=== PATIENT | female | born 1990 | race Caucasian/White ===

== ENCOUNTER 2017-09-17 11:59 | Emergency (ER) | payer OTHER ==
[2017-09-17] MEDS ORDERED: Ketorolac Tromethamine 60 MG/2 ML VIAL ONE (12:29)
[2017-09-17 12:42] LABS: Bilirubin Negative (Negative); Blood, Urine Moderate (Negative); Glucose, Urine (Dipstick) Negative (Negative); Ketone, Urine Negative (Negative); Nitrite Negative (Negative); Protein, Urine (Dipstick) Negative (Neg-Trace); Urobilinogen 0.2 mg/dL (0.2-1.0)
[2017-09-17 12:52] LABS: Bacteria/HPF None Seen HPF (None Seen); RBC/HPF 0-3 HPF (0-3); Squamous Epithelial 0-3 HPF (0-3); WBC/HPF None Seen HPF (0-3)
--- NOTE | 2017-09-17 13:50 | ULT ---
PELVIC ULTRASOUND: Date: 09-17-17 History: Left sided pelvis pain. FINDINGS: Multiple transabdominal sonographic images of the pelvis obtained. Uterus demonstrates normal sonographic appearance and measures 8.1 cm x 5.3 cm x 3.9 cm. Endometrial stripe measures 0.7 cm in AP dimensions which is within normal limits in a menstruating patient. No fluid or fluid collection is seen in the endometrial canal. The ovaries demonstrate a grossly normal sonographic appearance bilaterally for transabdominal imagi ng with the right ovary measures 2.5 cm x 1.8 cm x 1.4 cm and the left ovary measures 3.4 cm x 2.7 c m x 2.4 cm. No free fluid is seen in the cul-de-sac. Doppler evaluation of each ovary with spectral analysis and color flow evaluation demonstrates arter ial flow. IMPRESSION: 1. Normal appearing uterus and bilateral ovaries with transabdominal imaging. Arterial flow is docum ented in each ovary. POS: [facility]
== END 2017-09-17 13:27 | disposition home or self-care (01) ==
LOC: SCSER 11:59
DX: R10.32 Left lower quadrant pain (principal); Z79.899 Other long term (current) drug therapy
CPT/HCPCS: 76856; 81003; 81015; 81025; 93976; 96372; J1885